=== PATIENT | female | born 1940 | race Caucasian/White ===

== ENCOUNTER 2020-11-03 12:51 | Outpatient (CLI) | payer MEDICARE, SELFPAY ==
--- NOTE | 2020-11-03 15:00 | NEURO_ITS ---
Impression: # Complains of pain and numbness in right hand. # Moderately severe right Carpal Tunnel Syndrome. # No ulnar neuropathy. # Needle/EMG exam neurogenic in right APB. # Clinical correlation recommended. Nerve Conduction Studies Anti Sensory Summary Table Stim Site NR Peak (ms) P-T Amp (?V) Site1 Site2 Delta-P (ms) Dist (cm) Aurelio (m/s) Right Median Anti Sensory (2-3nd Digit) Wrist 5.5 14.0 Wrist 2-3nd Digit 5.5 14.0 25 Wrist 5.5 12.8 Wrist 2-3nd Digit 5.5 14.0 25 Right Radial Anti Sensory (Base 1st Digit) Wrist 2.4 6.6 Wrist Base 1st Digit 2.4 0.0 Right Ulnar Anti Sensory (5th Digit) Wrist 2.9 40.1 Wrist 5th Digit 2.9 14.0 48 Motor Summary Table Stim Site NR Onset (ms) O-P Amp (mV) Site1 Site2 Delta-0 (ms) Dist (cm) Aurelio (m/s) Right Median Motor (Abd Poll Brev) Wrist 6.1 1.3 Elbow Wrist 5.2 29.0 56 Elbow 11.3 1.1 Right Ulnar Motor (Abd Dig Minimi) Wrist 2.7 5.1 A Elbow Wrist 5.1 28.0 55 A Elbow 7.8 3.7 F Wave Studies NR F-Lat (ms) L-R F-Lat (ms) Right Median (Mrkrs) (Abd Poll Brev) 30.18 Right Ulnar (Mrkrs) (Abd Dig Min) 29.96 EMG Side Muscle Nerve Root Ins Act Fibs Amp Dur Recrt Comment Right 1stDorInt Ulnar C8-T1 Nml Nml Nml Nml Nml Right Ext Indicis Radial (Post Int) C7-8 Nml Nml Nml Nml Nml Right Ext Digitorum Radial (Post Int) C7-8 Nml Nml Nml Nml Nml Right BrachioRad Radial C5-6 Nml Nml Nml Nml Nml Right PronatorTeres Median C6-7 Nml Nml Nml Nml Nml Right Abd Poll Brev Median C8-T1 Nml Nml Decr >12ms Reduced Right ABD Dig Min Ulnar C8-T1 Nml Nml Nml Nml Nml MTDD
== END 2020-11-03 12:52 | disposition home or self-care (01) ==
PROVIDERS: PCP Internal Medicine Infectious Disease; Visit Provider Surgery Plastic and Reconstructive Surgery
DX: R20.0 Anesthesia of skin (principal); G56.01 Carpal tunnel syndrome, right upper limb
CPT/HCPCS: 95886; 95909

== ENCOUNTER 2020-11-29 11:17 | Outpatient (CLI) | payer MEDICARE, SELFPAY ==
--- NOTE | ~2020-11-29 | XR_ITS ---
EXAMINATION: XR wrist RT min 3V DATE: 11/29/2020 11:45 INDICATION: Right wrist pain and osteoarthritis. TECHNIQUE: 4 views of right wrist were obtained. COMPARISON: Right hand radiographs 02/26/2014 FINDINGS: Bone alignment is normal. No fracture. There is patchy sclerosis in lunate. There is severe osteoarthritis of triscaphe joint and first carpometacarpal joint. There is calcification of the tri angular fibrocartilage. IMPRESSION: 1. Polyarticular osteoarthritis. 2. 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 Reviewed, dictated and finalized at location A. RSHED COORDINATOR
== END 2020-11-29 11:18 | disposition home or self-care (01) ==
LOC: ANHIMG 11:24
PROVIDERS: PCP Internal Medicine Infectious Disease; Visit Provider Plastic Surgery
DX: M19.031 Primary osteoarthritis, right wrist (principal)
CPT/HCPCS: 73110

== ENCOUNTER → 2020-12-11 05:56 | Outpatient (CLI) | payer MEDICARE, SELFPAY ==
[2020-12-11 22:49] LABS: SARS-CoV-2 RNA PCR Negative
== END ==
PROVIDERS: PCP Internal Medicine Infectious Disease; Visit Provider Plastic Surgery
DX: Z01.812 Encounter for preprocedural laboratory examination (principal); Z20.822 Contact with and (suspected) exposure to COVID-19
CPT/HCPCS: C9803; U0003; U0005

== ENCOUNTER 2020-12-15 01:20 | Day surgery (SDC) | payer MEDICARE, SELFPAY ==
[2020-12-08 15:49] VITALS: BMI 22.8
[2020-12-15 10:29] VITALS: BP 127/51; PULSE 62; RESP 20; TEMP 36.5; O2SAT 98
--- NOTE | 2020-12-15 11:08 | WPDHPUPDATE1 ---
History and Physical Update Update Date/Time: 12/15/20 11:08 History and Physical has been reviewed, including an updated exam of the patient. There are NO changes in the patient's condition. Risks, benefits, and alternatives have been discussed and questions answered. Patient agrees to proceed with procedure.
[2020-12-15 11:25] VITALS: BP 164/74; PULSE 72; RESP 14; O2SAT 97
[2020-12-15 11:35] VITALS: BP 160/73; PULSE 65; RESP 18; O2SAT 96
[2020-12-15] MEDS: LIDO 1%/EPINEPHRINE 1:100,000 50 ML VIAL INFILTRATE (11:37)
[2020-12-15] MEDS: MUPIROCIN 2% OINT 22 GM TUBE 1 APPLIC TOPICAL (11:39)
[2020-12-15 11:45] VITALS: BP 160/70; PULSE 63; RESP 16; O2SAT 95
[2020-12-15 11:51] VITALS: BP 150/72; PULSE 58; RESP 16; O2SAT 99
--- NOTE | 2020-12-15 11:58 | PM.OP ---
Procedure Note - Brief Procedure Note - Brief Date of procedure: 12/15/20 Pre-op diagnosis: right carpal tunnel syndrome Post-op diagnosis: same Procedure performed: R OCTR Description of procedure: L OCTR Anesthesia: local Surgeon: Rayshawn Rai MD Estimated blood loss (mL): 1 Tourniquet time (min): 0 Drains: No Packing: No Pathology: none sent Complications: No immediate complications Condition: stable Disposition: same day
--- NOTE | 2020-12-15 12:00 | P.OP_ITS ---
Procedure Note - Detailed Date of procedure: 12/15/20 Pre-op diagnosis: right carpal tunnel syndrome Post-op diagnosis: same Procedure performed: Right open carpal tunnel release Description of procedure: The patient's right wrist was marked in the holding area. She was taken to the operating room and placed supine on the operating table. A time-out was held and confirmed. The right upper extremity was prepped and draped in usual fashion. The site was remarked for the incision and locally infiltrated with 1% lidocaine with epinephrine. No tourniquet was utilized this occasion. The incision was made as marked and carried bluntly t hrough the subcutaneous tissue to the palmar fascia. This and the carpal ligament were incised with a 15. Blade. Under 3 point retraction the ligament was divided distally and proximally for complete release. There is no unusual anatomy noted the skin was closed with interrupted 5 0 nylon suture. She is discharged home with instructions in wound care and follow-up she has a prescription for hydrocodone 5/325 sent to her pharmacy for 8. Surgeon: Rayshawn Rai MD
[2020-12-15 12:20] VITALS: BP 133/65; PULSE 59; RESP 16
== END 2020-12-15 12:33 | disposition home or self-care (01) ==
PROVIDERS: PCP Internal Medicine Infectious Disease; Visit Provider Plastic Surgery
PROC: (CPT 64721; principal; 2020-12-15 11:00)
DX: G56.01 Carpal tunnel syndrome, right upper limb (principal); I10 Essential (primary) hypertension; E89.0 Postprocedural hypothyroidism
CPT/HCPCS: 64721; A9270; C9803; U0003; U0005